=== PATIENT | female | born 1990 ===

== ENCOUNTER 2017-06-01 12:13 | Emergency (ER) | payer OTHER ==
[~2017-06-01] VITALS: Ht 154.9 cm; Wt 77.3 kg
[2017-06-01 12:16] VITALS: BP 118/55
[2017-06-01] MEDS ORDERED: GUAIF10 PO (12:17)
== END 2017-06-01 13:34 | disposition home or self-care (01) ==
LOC: EMS 12:16
DX: J06.9 Acute upper respiratory infection, unspecified (principal); Z88.1 Allergy status to other antibiotic agents
CPT/HCPCS: 99282